=== PATIENT | female | born 1955 | race Two or more races ===

== ENCOUNTER 2021-10-09 13:37 | Emergency (ER) | payer OTHER ==
[~2021-10-09] VITALS: Ht 149.9 cm; Wt 63.5 kg
[2021-10-09] MEDS ORDERED: SYNTHROID137 MCG (14:09)
[2021-10-09] MEDS ORDERED: SYNTHROID125 MCG (14:09)
[2021-10-09] MEDS ORDERED: MEDROLPACK (14:10)
[2021-10-09] MEDS ORDERED: CARVEDILOL ER40 MG (14:10)
[2021-10-09] MEDS ORDERED: GLIMEPIRIDE4 MG (14:10)
[2021-10-09] MEDS ORDERED: PEPCID AC20 MG PO (16:55)
[2021-10-09] MEDS ORDERED: METOCLOPRAMIDE10 MG PO (16:55)
== END 2021-10-09 17:21 ==
LOC: ER 13:37
DX: K29.60 Other gastritis without bleeding (principal); U09.9 Post COVID-19 condition, unspecified